=== PATIENT | male | born 1995 | race Caucasian/White ===

== ENCOUNTER → 2024-04-23 19:12 | Outpatient (CLI) | payer OTHER, SELFPAY ==
--- NOTE | 2024-04-23 | DI.MRI.S_ITS ---
PROCEDURE: MR CERVICAL SPINE WO CON INDICATIONS: CERVICAL ROOT DISORDERS TECHNIQUE: Noncontrast sagittal T1 spin echo and T2 fast spin echo, sagittal STIR, foraminal oblique sagittal T2 fast spin echo, and axial gradient echo or T2 fast spin echo through the cervical spine. COMPARISON: None. FINDINGS: Image quality: Excellent. Alignment and Curvature: There is normal bony alignment. Bone Marrow: Marrow demonstrates normal overall signal. Spinal Cord: Visualized spinal cord has normal size and signal. No cerebellar tonsillar herniation. Paraspinous Soft Tissues: No paravertebral masses. Prevertebral soft tissues are normal in thickness. C2-C3: No disc bulge, spinal stenosis or foraminal narrowing. C3-C4: Minimal disc bulge without spinal stenosis. [id number] right foraminal narrowing. C4-C5: No disc bulge or spinal stenosis. Minimal right foraminal narrowing. C5-C6: No disc bulge, spinal stenosis or foraminal narrowing. C6-C7: No disc bulge or spinal stenosis. Trace left foraminal narrowing. C7-T1: No disc bulge, spinal stenosis or foraminal narrowing. IMPRESSION: Very minimal early degenerative changes demonstrating overall minimal foraminal narrowing most notable at C3-4. Dictated by: Lizzeth Welsh M.D. on 04/24/2024 at 14:16 Approved by: Lizzeth Welsh M.D. on 04/24/2024 at 14:22
== END ==
PROVIDERS: PCP Student in an Organized Health Care Education/Training Program; Referring Provider Student in an Organized Health Care Education/Training Program; Visit Provider Student in an Organized Health Care Education/Training Program
DX: G54.2 Cervical root disorders, not elsewhere classified (principal)
CPT/HCPCS: 72141